=== PATIENT | male | born 1970 | race Two or more races ===

== ENCOUNTER → 2025-09-09 | Emergency (ER) | payer OTHER ==
[~2025-09-09] VITALS: Ht 167.6 cm; Wt 81.6 kg
[~2025-09-09] MED LIST: ACETAMINOPHEN 500 MG GEL..CAP PO ONE; CRESTOR40 MG
[2025-09-09 18:34] LABS: BASO % 0.5 % (0.1-1.2); EOS # 0.19 (0.04-0.54); EOS % 2.5 % (0.7-7.0); LYMPH # 1.55 (1.18-3.74); LYMPH % 20.3 % (19.3-53.1); MEAN PLATELET VOLUME 10.10 fl (9.4-12.4); MONO # 1.14 (0.24-0.82); NEUT # 4.68 (1.56-6.13); NEUT % 61.1 % (34.0-71.1); RED CELL DISTRIBUTION WIDTH 12.3 % (11.6-14.4)
[2025-09-09 18:35] LABS: MONO % 14.9 % (4.7-12.5)
[2025-09-09 19:10] LABS: COVID-19 AG NEGATIVE (NEGATIVE)
== END | disposition home or self-care (01) ==
LOC: ER 13:51
PROVIDERS: General Practice
DX: J10.1 Influenza due to other identified influenza virus with other respiratory manifestations (principal); Z20.822 Contact with and (suspected) exposure to COVID-19; Z88.0 Allergy status to penicillin